=== PATIENT | male | born 1955 | race Caucasian/White ===

== ENCOUNTER 2018-03-01 07:48 | Observation (INO) ==
[2018-03-01 08:18] LABS: Bilirubin,Urine Negative (Negative); Blood,Urine Large (Negative); Clarity,Urine Cloudy (Clear); Color,Urine Red (Yellow); Glucose,Urine (UA) Normal (Normal); Ketones,Urine Trace mg/dL (Negative); Leukocyte Esterase,Urine Moderate (Negative); Nitrite,Urine Positive (Negative); Protein,Urine >=300 mg/dL (Neg-Trace); Specific Gravity,Urine 1.017 (1.010-1.025); Urobilinogen,Urine Normal (Normal)
--- NOTE | 2018-03-01 08:20 | Emergency Department Note ---
Disposition Clinical Impression: Bladder mass, Urinary retention Hematuria Qualifiers: Hematuria type: gross Qualified Code(s): R31.0 - Gross hematuria Disposition: Admitted As Inpatient Condition: Fair Forms: ED Satisfaction Letter General Adult HPI - General Chief complaint: ED Urogenital-Male Stated complaint: unable to void Time Seen by Provider: 03/01/18 07:54 Source: patient Mode of arrival: ambulatory Limitations: no limitations Nursing Notes Reviewed: Yes Vital Signs Reviewed: Yes - History of Present Illness HPI Narrative: 62-year-old male with significant past medical history of hypertension presenting to the emergency department with chief complaint of urinary retention and hematuria. Patient states for 2-3 weeks he has had a dark, orange /red color to his urine. Denies any pain. This morning he woke up and has been unable to urinate. He felt the urge but was unable to pass urine. When patient arrived here he was able to pass urine with large blood clots. Patient states he does not feel he emptied his bladder completely. States some burning with urination. Denies any history of urinary tract infections. Denies any other symptoms at home including fever, shortness breath, chest pain or abdominal pain. Denies nausea or vomiting. Patient does state he is a daily smoker and has smoked for the past 40+ years. Denies any previous kidney stones. Pain Scale: 0 - Related Data Home Medications Medication Instructions Recorded Confirmed Ascorbate Calcium [Vitamin C] 500 mg PO DAILY 10/22/16 10/22/16 Aspirin [Lo-Dose Aspirin EC] 81 mg PO DAILY 10/22/16 10/22/16 Fish Oil/Dha/Epa [Fish Oil 1,200 1,200 mg PO DAILY 10/22/16 10/22/16 mg Fish Oil] Lisinopril [Zestril] 20 mg PO DAILY 10/22/16 10/22/16 amLODIPine [Norvasc] 5 mg PO DAILY 10/22/16 10/22/16 Allergies Allergy/AdvReac Type Severity Reaction Status Date / Time Penicillins Allergy Hives Verified 03/01/18 07:57 All systems ED: reviewed and negative except as stated. Constitutional: Denies: fever, chills, weakness Eyes: Reports: as per HPI ENT ED: Reports: as per HPI Cardiovascular: Denies: chest pain, palpitations, dyspnea on exertion Respiratory: Denies: cough, dyspnea, wheezes Gastrointestinal: Denies: abdominal pain, nausea, vomiting Genitourinary: Reports: hematuria Musculoskeletal: Reports: as per HPI Integumentary: Denies: rash, abrasion Neurological: Denies: weakness, numbness, paresthesias Psychiatric: Reports: as per HPI Endocrine: Reports: as per HPI Hematological/Lymphatic: Reports: as per HPI Allergic/Immunologic: Reports: as per HPI Past Medical History - Past Medical History Attestation: Yes The following information was validated with the patient. Medical history: Reports: hyperlipidemia, hypertension Surgical history: Reports: appendectomy Psychiatric history: Reports: no psych history - Social History Smoking Status: Current every day smoker Smokeless Tobacco Status: Yes Alcohol use: Reports: heavy Drug use: Reports: none Physical Exam - General Limitations: no limitations General appearance: alert, in no apparent distress - Head Head exam: atraumatic, normocephalic, normal inspection - Eye Eye exam: Present: normal appearance. Absent: scleral icterus, conjunctival injection - ENT ENT exam: normal exam, mucous membranes moist - Neck Neck exam: Present: normal inspection, full ROM. Absent: tenderness, meningismus - Chest Chest inspection: Present: normal inspection, symmetric chest wall rise. Absent : tenderness, rash - Respiratory Respiratory exam: Present: normal lung sounds bilaterally. Absent: respiratory distress, wheezes - Cardiovascular Cardiovascular exam: Present: regular rate, normal rhythm, normal heart sounds - Abdominal Exam Abdominal exam: Present: soft, Non-Tender. Absent: distention, guarding, rebound - Extremities Exam Extremities exam: Present: normal inspection, full ROM - Neurological Exam Neurological exam: Present: alert, oriented X3 - Psychiatric Psychiatric exam: Present: normal affect, normal mood - Skin Skin exam: Present: warm, intact Course Course Narrative: 62-year-old male presenting with hematuria and urgency. Patient is alert and oriented 3 in room with stable vital signs. Concern for painless hematuria. We will obtain a urinalysis, CBC, BMP along with a CT of the abdomen and pelvis. Disposition pending results. Patient agrees with this plan. - Reevaluation(s) Reevaluation #1: CT of the abdomen and pelvis shows Irregular somewhat masslike foci of increased attenuation within the urinary bladder posteriorly on both the left and the right, somewhat intimately associated with the urinary bladder wall. Findings are considered to be neoplastic until proven otherwise. Recommend direct visualization and consideration for soft tissue sampling. Concern for malignancy at this time. Otherwise basic laboratory analysis stable. I spoke with the urologist taxonomist Dr. Petersen who agreed to come down and evaluate the patient. He place a catheter and plans to admit the patient to his service for further evaluation and possible tumor resection. Patient remains alert and oriented 3 in the room with stable vital signs. Admission at this time. Patient agrees to this plan. Vital Signs Temperature 97.8 F 03/01/18 07:51 Pulse Rate 93 03/01/18 07:51 Respiratory Rate 16 03/01/18 07:51 Blood Pressure 161/87 03/01/18 07:51 O2 Sat by Pulse Oximetry 95 03/01/18 07:51 Temperature 97.8 F 03/01/18 08:04 Pulse Rate 93 03/01/18 08:04 Respiratory Rate 16 03/01/18 08:04 Blood Pressure 161/87 03/01/18 08:04 O2 Sat by Pulse Oximetry 95 03/01/18 08:04 Oxygen Delivery Oxygen Delivery Room Air Medical Decision Making - Lab Data Result diagrams: 03/01/18 08:14 03/01/18 08:14 Lab Results 03/01/18 03/01/18 03/01/18 Range/Units 08:01 08:14 08:14 WBC 9.1 (4.3-11.1) K/mcL RBC 3.79 L (4.19-5.50) M/mcL Hgb 11.4 L (12.9-16.9) g/dL Hct 35.4 L (37.5-50.1) % MCV 93.4 (83.0-100.0) fL MCH 30.1 (28.0-33.3) pg MCHC 32.2 (31.6-35.5) g/dL RDW 13.8 (11.5-14.5) % Plt Count 295 (140-400) K/mcL MPV 9.2 L (9.4-12.4) fL Immature Gran % 0.3 (0-4) % Seg Neutrophils % 71.4 % Lymphocytes % 20.0 % Monocytes % 8.0 % Eosinophils % 0.0 % Basophils % 0.3 % Neutrophils # 6.5 (1.6-8.9) K/mcL Lymphocytes # 1.8 (0.6-4.6) K/mcL Monocytes # 0.7 (0.0-1.3) K/mcL Eosinophils # 0.0 (0.0-0.6) K/mcL Basophils # 0.0 (0.0-0.2) K/mcL Sodium 135 L (136-145) mEq/L Potassium 4.7 (3.5-5.1) mEq/L Chloride 108 H (98-107) mEq/L Carbon Dioxide 22 L (23-29) mEq/L BUN 26 H (8-23) mg/dL Creatinine 1.16 (0.70-1.30) mg/dL Est GFR ( Amer) > 60 (> 60) Est GFR (Non-Af Amer) > 60 (> 60) BUN/Creatinine Ratio 22 (6-26) Glucose 125 H (70-105) mg/dL Calculated Osmolality 286 (280-300) Calcium 9.3 (8.6-10.3) mg/dL Ur Specimen Adequacy See below A Urine Color Red A (Yellow) Urine Clarity Cloudy A (Clear) Urine pH 6.0 (5.0-8.0) pH Units Ur Specific [place] 1.017 (1.010-1.025) Urine Protein >=300 H (Neg-Trace) mg/dL Urine Glucose (UA) Normal (Normal) mg/dL Urine Ketones Trace H (Negative) mg/dL Urine Blood Large H (Negative) Urine Nitrite Positive A (Negative) Urine Bilirubin Negative (Negative) Urine Urobilinogen Normal (Normal) mg/dL Ur Leukocyte Esterase Moderate H (Negative) Ur Culture Indicated? YES A (NO)
[2018-03-01 08:27] LABS: Basophils % 0.3 %; Hematocrit 35.4 % (37.5-50.1); Hemoglobin 11.4 g/dL (12.9-16.9); Immature Granulocytes % 0.3 % (0-4); Lymphocytes # 1.8 K/mcL (0.6-4.6); Mean Corpuscular HGB Conc 32.2 g/dL (31.6-35.5); Mean Corpuscular Hemoglobin 30.1 pg (28.0-33.3); Mean Corpuscular Volume 93.4 fL (83.0-100.0); Mean Platelet Volume 9.2 fL (9.4-12.4); Monocytes # 0.7 K/mcL (0.0-1.3); Neutrophils # 6.5 K/mcL (1.6-8.9); Platelet Count 295 K/mcL (140-400); Red Blood Count 3.79 M/mcL (4.19-5.50); Red Cell Distribution Width 13.8 % (11.5-14.5); Segmented Neutrophils % 71.4 %
[2018-03-01 08:44] LABS: BUN/Creatinine Ratio 22 (6-26); Blood Urea Nitrogen 26 mg/dL (8-23); Calcium 9.3 mg/dL (8.6-10.3); Carbon Dioxide 22 mEq/L (23-29); Chloride 108 mEq/L (98-107); Glucose 125 mg/dL (70-105); Osmolality,Calculated 286 (280-300); Potassium 4.7 mEq/L (3.5-5.1); Sodium 135 mEq/L (136-145); eGFR For Non-African Americans > 60 (> 60)
--- NOTE | 2018-03-01 08:54 | Emergency Department Note ---
Disposition Clinical Impression: Acute retention of urine, Mass of bladder Disposition: Admitted As Inpatient Condition: Fair Referrals: Saloni Malik MD [Primary Care Provider] - Forms: ED Satisfaction Letter Time of Disposition: 10:01 General Adult HPI - General Chief complaint: ED Urogenital-Male Stated complaint: unable to void Time Seen by Provider: 03/01/18 07:54 Source: patient Mode of arrival: ambulatory Limitations: no limitations - History of Present Illness Pain Scale: 0 - Related Data Home Medications Medication Instructions Recorded Confirmed Ascorbate Calcium [Vitamin C] 500 mg PO DAILY 10/22/16 10/22/16 Aspirin [Lo-Dose Aspirin EC] 81 mg PO DAILY 10/22/16 10/22/16 Fish Oil/Dha/Epa [Fish Oil 1,200 1,200 mg PO DAILY 10/22/16 10/22/16 mg Fish Oil] Lisinopril [Zestril] 20 mg PO DAILY 10/22/16 10/22/16 amLODIPine [Norvasc] 5 mg PO DAILY 10/22/16 10/22/16 Allergies Allergy/AdvReac Type Severity Reaction Status Date / Time Penicillins Allergy Hives Verified 03/01/18 07:57 Constitutional: Denies: fever, chills, weakness Eyes: Reports: as per HPI ENT ED: Reports: as per HPI Cardiovascular: Denies: chest pain, palpitations, dyspnea on exertion Respiratory: Denies: cough, dyspnea, wheezes Gastrointestinal: Denies: abdominal pain, nausea, vomiting Genitourinary: Reports: hematuria Musculoskeletal: Reports: as per HPI Integumentary: Denies: rash, abrasion Neurological: Denies: weakness, numbness, paresthesias Psychiatric: Reports: as per HPI Endocrine: Reports: as per HPI Hematological/Lymphatic: Reports: as per HPI Allergic/Immunologic: Reports: as per HPI Past Medical History - Past Medical History Medical history: Reports: hyperlipidemia, hypertension Surgical history: Reports: appendectomy Psychiatric history: Reports: no psych history - Social History Smoking Status: Current every day smoker Smokeless Tobacco Status: Yes Alcohol use: Reports: heavy Drug use: Reports: none Physical Exam - General Limitations: no limitations General appearance: alert, in no apparent distress Course Vital Signs Temperature 97.8 F 03/01/18 07:51 Pulse Rate 93 03/01/18 07:51 Respiratory Rate 16 03/01/18 07:51 Blood Pressure 161/87 03/01/18 07:51 O2 Sat by Pulse Oximetry 95 03/01/18 07:51 Temperature 97.8 F 03/01/18 08:04 Pulse Rate 93 03/01/18 08:04 Respiratory Rate 16 03/01/18 08:04 Blood Pressure 161/87 03/01/18 08:04 O2 Sat by Pulse Oximetry 95 03/01/18 08:04 Oxygen Delivery Oxygen Delivery Room Air Medical Decision Making - Lab Data Result diagrams: 03/01/18 08:14 03/01/18 08:14 Lab Results 03/01/18 03/01/18 03/01/18 Range/Units 08:01 08:14 08:14 WBC 9.1 (4.3-11.1) K/mcL RBC 3.79 L (4.19-5.50) M/mcL Hgb 11.4 L (12.9-16.9) g/dL Hct 35.4 L (37.5-50.1) % MCV 93.4 (83.0-100.0) fL MCH 30.1 (28.0-33.3) pg MCHC 32.2 (31.6-35.5) g/dL RDW 13.8 (11.5-14.5) % Plt Count 295 (140-400) K/mcL MPV 9.2 L (9.4-12.4) fL Immature Gran % 0.3 (0-4) % Seg Neutrophils % 71.4 % Lymphocytes % 20.0 % Monocytes % 8.0 % Eosinophils % 0.0 % Basophils % 0.3 % Neutrophils # 6.5 (1.6-8.9) K/mcL Lymphocytes # 1.8 (0.6-4.6) K/mcL Monocytes # 0.7 (0.0-1.3) K/mcL Eosinophils # 0.0 (0.0-0.6) K/mcL Basophils # 0.0 (0.0-0.2) K/mcL Sodium 135 L (136-145) mEq/L Potassium 4.7 (3.5-5.1) mEq/L Chloride 108 H (98-107) mEq/L Carbon Dioxide 22 L (23-29) mEq/L BUN 26 H (8-23) mg/dL Creatinine 1.16 (0.70-1.30) mg/dL Est GFR ( Amer) > 60 (> 60) Est GFR (Non-Af Amer) > 60 (> 60) BUN/Creatinine Ratio 22 (6-26) Glucose 125 H (70-105) mg/dL Calculated Osmolality 286 (280-300) Calcium 9.3 (8.6-10.3) mg/dL Ur Specimen Adequacy See below A Urine Color Red A (Yellow) Urine Clarity Cloudy A (Clear) Urine pH 6.0 (5.0-8.0) pH Units Ur Specific [place] 1.017 (1.010-1.025) Urine Protein >=300 H (Neg-Trace) mg/dL Urine Glucose (UA) Normal (Normal) mg/dL Urine Ketones Trace H (Negative) mg/dL Urine Blood Large H (Negative) Urine Nitrite Positive A (Negative) Urine Bilirubin Negative (Negative) Urine Urobilinogen Normal (Normal) mg/dL Ur Leukocyte Esterase Moderate H (Negative) Ur Culture Indicated? YES A (NO) Attestation Statement - Attestation Attestation: I examined this patient and my medical decision-making was reviewed with the Resident Physician. I agree with the documented findings, disposition and treatment plan as described except to the extent set forth below. Patient to the ED with urinary retention and hematuria. Onset a couple of days ago. Patient has had dark urine for a few weeks. He is now passing clots and unable to void. No history of similar. He is a smoker. Retired from [employer]. He is in no distress on examination with a soft, nontender abdomen. Plan. Basic labs, UA, CT abdomen pelvis. CT shows tumor. Labs stable. He does have a UTI. He has been evaluated by Dr. Petersen in the emergency Department and will admit to his service. Abdomen/Pelvis CT 03/01/18 08:09 IMPRESSION: Irregular somewhat masslike foci of increased attenuation within the urinary bladder posteriorly on both the left and the right, somewhat intimately associated with the urinary bladder wall. Findings are considered to be neoplastic until proven otherwise. Recommend direct visualization and consideration for soft tissue sampling. No evidence for urinary tract stone or urinary tract obstruction on either side. No acute abnormalities are seen to the abdomen or pelvis. No evidence for metastatic disease is seen to the abdomen or pelvis on this noncontrast study. Mildly enlarged prostate. D/ / 03/01/2018 08:48:20 Tam Syed MD / snow Interpreting Provider: Tam Syed MD
[2018-03-01] MEDS ORDERED: Lidocaine Jelly 11 ml Syringe TP STA (09:20)
[2018-03-01] MEDS ORDERED: *HR* HYDROcodone/Acet 5/325 mg TABLET PO PRN (10:43)
[2018-03-01] MEDS ORDERED: Isovue-370 500 ML INFUS..BTL IV ONE ×2 (10:43→11:28)
[2018-03-01] MEDS ORDERED: OXYCODONE Oral CONC 10 MG/0.5 ML ORAL.SYG SL PRN (10:43)
[2018-03-01] MEDS ORDERED: Naloxone 0.4 MG/ML INJ IVP PRN (10:43)
[2018-03-01] MEDS ORDERED: *HR* Belladonna Alkaloids/Opium 30 MG RECTAL SUPPOSITORY RC PRN (10:43)
[2018-03-01] MEDS ORDERED: Levofloxacin 500 MG/100 ML 500 MG/100 ML BAG IVPB SCH (11:00)
[2018-03-01] MEDS: 0.9 % Sodium Chloride 1,000 ML IVC SCH (13:25)
--- NOTE | 2018-03-01 16:31 | Urology History & Physical ---
Date of Encounter: 03/01/18 Time of Encounter: 16:29 Assessment and Plan (1) Acute retention of urine Current Visit: Yes Status: Acute pt has clot retention. I suspect one of the "tumors" mentioned on the CT scan is actually a clot. placed a hematuria cath but unable to irrigate the clot out. will admit and plan to go to OR tomorrow for TURBT and clot evacuation. I feel pt is too high of risk for discharge bc of recurrent clot retention. (2) Mass of bladder Current Visit: Yes Status: Acute I strongly suspect at least one tumor which is likely bladder cancer. will proceed with TURBT at time of clot evacuation. pt understands risk for perforation, stricture, injury to the urinary tract, bleeding, infection, need for further surgery. History of Present Illness Chief complaint: GH HPI: Mr. Ramos is a 62 year old male 40 year hx smoking. recent GH. GH with clots and difficulty urinating today. cut some firewood yesterday and heamturia worsened. no hx of similar. ct scan with likely bladder tumor. no CP or SOB. no weight loss. Past Med Surg Social Fam HX - Past Medical History Medical history: hyperlipidemia, hypertension Psychiatric history: no psych history - Past Surgical History Surgical History: appendectomy - Social History Smoking Status: Current every day smoker Smokeless Tobacco Status: Yes Alcohol use: heavy Drug use: none - Family History Mother Age at : 93 Cause of : dementia Medications and Allergies Ascorbate Calcium [Vitamin C] 500 mg PO DAILY 10/22/16 [History] Aspirin [Lo-Dose Aspirin EC] 81 mg PO DAILY 10/22/16 [History] Fish Oil/Dha/Epa [Fish Oil 1,200 mg Fish Oil] 1,200 mg PO DAILY 10/22/16 [ History] Lisinopril [Zestril] 20 mg PO DAILY 10/22/16 [History] amLODIPine [Norvasc] 5 mg PO DAILY 10/22/16 [History] 3 Allergy/AdvReac Type Severity Reaction Status Date / Time Penicillins Allergy Hives Verified 03/01/18 07:57 Review of Systems - Constitutional no chills, no fatigue - EENT Nose, mouth and throat: no dizziness - Cardiovascular no chest pain - Respiratory no cough - Gastrointestinal no abdominal pain, no nausea, no vomiting - Genitourinary difficulty urinating, hematuria, no flank pain - Musculoskeletal no back pain - Integumentary no erythema - Neurological no confusion - Psychiatric no anxiety - Hematologic/Lymphatic no easy bleeding - Allergic/Immunologic no throat swelling Exam Initial Vital Signs Temp Pulse Resp BP Pulse Ox 97.8 F 93 16 161/87 95 03/01/18 07:51 03/01/18 07:51 03/01/18 07:51 03/01/18 07:51 03/01/18 07:51 - General physical appearance Present: well developed, no distress - Eyes Present: PERRL - ENT Present: normal nares - Neck Present: no masses - Respiratory Present: normal respiratory effort - Cardiovascular Cardiovascular exam IM: RRR - Abdomen Abdomen: Present: soft, suprapubic tenderness - Genitourinary normal penis with no external lesions - Integumentary Present: no rash - Neurologic Present: normal coordination. Absent: disoriented, confused - Additional Findings voided urine dark maroon. Urology Results - Labs 03/01/18 08:14 03/01/18 08:14 Abnormal lab results RBC 3.79 M/mcL (4.19-5.50) L 03/01/18 08:14 Hgb 11.4 g/dL (12.9-16.9) L 03/01/18 08:14 Hct 35.4 % (37.5-50.1) L 03/01/18 08:14 MPV 9.2 fL (9.4-12.4) L 03/01/18 08:14 Sodium 135 mEq/L (136-145) L 03/01/18 08:14 Chloride 108 mEq/L (98-107) H 03/01/18 08:14 Carbon Dioxide 22 mEq/L (23-29) L 03/01/18 08:14 BUN 26 mg/dL (8-23) H 03/01/18 08:14 Glucose 125 mg/dL (70-105) H 03/01/18 08:14 Ur Specimen Adequacy See below A 03/01/18 08:01 Urine Color Red (Yellow) A 03/01/18 08:01 Urine Clarity Cloudy (Clear) A 03/01/18 08:01 Urine Protein >=300 mg/dL (Neg-Trace) H 03/01/18 08:01 Urine Ketones Trace mg/dL (Negative) H 03/01/18 08:01 Urine Blood Large (Negative) H 03/01/18 08:01 Urine Nitrite Positive (Negative) A 03/01/18 08:01 Ur Leukocyte Esterase Moderate (Negative) H 03/01/18 08:01 Ur Culture Indicated? YES (NO) A 03/01/18 08:01 All other labs normal.
[2018-03-02] MEDS: 0.9 % Sodium Chloride 1,000 ML IVC SCH (06:37)
--- NOTE | 2018-03-02 07:24 | Anesthesia Evaluation PreOp ---
Date of Encounter: 03/02/18 Time of Encounter: 08:30 - Past History Planned Operation: TURP with clot evacuation Cardiac History: HTN, Hyperlipidemia Pulmonary History: Smoker [employer] History: Denies Any Significant HX Other Medical History: Denies Any Significant HX Anesthesia History: No Prior Anesthetic Complications, Past Anesthesia Alcohol Use: heavy Drug use: none Medications and Allergies Ascorbate Calcium [Vitamin C] 500 mg PO DAILY 10/22/16 [History] Aspirin [Lo-Dose Aspirin EC] 81 mg PO DAILY 10/22/16 [History] Fish Oil/Dha/Epa [Fish Oil 1,200 mg Fish Oil] 1,200 mg PO DAILY 10/22/16 [ History] Lisinopril [Zestril] 20 mg PO DAILY 10/22/16 [History] amLODIPine [Norvasc] 5 mg PO DAILY 10/22/16 [History] 3 Allergy/AdvReac Type Severity Reaction Status Date / Time Penicillins Allergy Hives Verified 03/01/18 07:57 - Meds/Allergy Pre-op Review Medications Reviewed: Yes Allergies Reviewed: Yes Beta Blockers on Current Med List: No Anesthesia Results - Labs 03/01/18 08:14 03/01/18 08:14 Anesthesia Exam Selected Entries 03/02/18 07:08 Temperature 98.0 F Pulse Rate 55 Respiratory Rate 16 Blood Pressure 152/70 O2 Sat by Pulse Oximetry 98 Weight: 63 kg NPO (# of Hours): over 8 hours - HEENT Pupil (Motor): Pupils equal Mallampati: III Oral Opening: Greater than 3 - Cardiac Rhythm: Regular Murmur: None - Pulmonary Breath Sounds: bilateral Clear Respiratory Effort: Symmetrical Anesthesia Assess/Plan ASA Score: 2 Modified Amo Scale for Level of Consciousness: Cooperative, oriented, and tranquil Anesthetic Plan: General Monitoring Plan: Standard Monitors Recovery Plan: Other
[2018-03-02] MEDS ORDERED: Lidocaine -MPF 2% 2 ML VIAL ONE (08:32)
[2018-03-02] MEDS ORDERED: *HR* Propofol 200 MG/20 ML VIAL IVP ONE (08:32)
[2018-03-02] MEDS ORDERED: Ondansetron 4 MG/2 ML VIAL ONE (08:32)
[2018-03-02] MEDS ORDERED: Lidocaine -MPF 4% 5 ML AMPUL ONE (08:32)
[2018-03-02] MEDS ORDERED: *HR* FentaNYL (PF) 100 MCG/2 ML VIAL ONE ×2 (08:32→08:51)
[2018-03-02] MEDS ORDERED: Dexamethasone 4 MG/ML VIAL ONE (08:32)
[2018-03-02] MEDS ORDERED: *HR* Rocuronium Bromide 50 MG/5 ML VIAL ONE (08:32)
[2018-03-02] MEDS ORDERED: *HR* Midazolam HCl 2 MG/2 ML VIAL ONE (08:32)
[2018-03-02] MEDS ORDERED: EPHEDrine 50 MG/ML VIAL ONE (08:32)
[2018-03-02] MEDS ORDERED: *HR* PHENYLEPHRINE 1,000 MCG/10 ML SYRINGE IVP ONE (08:32)
[2018-03-02] MEDS ORDERED: MORPHINE SUL Oral CONC 10 MG/0.5 ML ORAL.SYG SL PRN (08:40)
[2018-03-02] MEDS ORDERED: *HR* OxyCODONE Immed Rel 5 MG TABLET PO PRN (08:40)
[2018-03-02] MEDS ORDERED: *HR* Promethazine 25 MG/ML VIAL IVP PRN (08:40)
[2018-03-02] MEDS ORDERED: Albuterol 2.5 MG/3 ML NEBULIZER IH ONE (08:40)
[2018-03-02] MEDS ORDERED: Dexamethasone 4 MG/ML VIAL IVP ONE (08:40)
[2018-03-02] MEDS ORDERED: Acetaminophen IV 1,000 MG/100 ML INFUS..BTL ONE (08:54)
[2018-03-02] MEDS ORDERED: Neostigmine Methylsulfate 3 MG/3 ML SYRINGE ONE (09:00)
--- NOTE | 2018-03-02 09:46 | Operative Note ---
Date of procedure: 03/02/18 Pre-op diagnosis: bladder tumor and clot retention Post-op diagnosis: same Procedure: medium TURBT. tumor size 3-4 cm clot evacuation Anesthesia: GETA Surgeon: Sascha Petersen Was there an workforce development assistant present: No Estimated blood loss (cc): 50 Specimen: bladder tumor Condition: stable Disposition: PACU Procedure in Detail: PROCEDURE IN DETAIL: Patient was taken back to the operating room, positioned supine on the operating table. Anesthesia was applied without complication. They were moved into dorsal lithotomy. Careful attention was maintained to cushion pressure points for patient's safety. The patient was prepped and draped in sterile fashion. Time-out was performed to confirm the proper patient and procedure. I dilated the meatus to a 24-Occitan size with a Pili dilator. I placed the resectoscope with visual obturator. 22-Occitan bipolar resection loop was obtained and assembled. The tumor was located on the left lateral wall just lateral to the ureteral orifice. The ureteral orifice was approximately 1 cm away from the tumor however there was significant parasitic vessels in this area. There was a large blood clot within the dependent portion of the bladder that was irrigated using the [place] syringe. I then was able to resect the tumor in its entirety. There was no obturator reflex during the procedure as the patient was paralyzed. Muscle appeared to be visualized in the resection site and there was no evidence of perforation. Hemostasis was controlled with the loop and minimal bleeding was observed after the procedure. I did cauterize around the ureteral orifice but it was clearly visible after the resection and fulguration. The remainder of the bladder appeared free from tumor. There was some irritation to the bladder wall and moderate trabeculations. All tumor chips were removed from the bladder through the resectoscope and sent for permanent specimen. I emptied and filled the bladder a few times to confirm hemostasis. A three-way 22-[place]itan catheter was placed with return of clear urine at the end of the procedure. They were brought out of anesthesia in stable condition.
--- NOTE | 2018-03-02 09:49 | Discharge Summary ---
Orders not resulted at time of discharge: Pending orders 03/01/18 10:43 ECG 12 lead ECG [ECG] Routine 03/02/18 09:13 Surgical Pathology [PTH] Routine Date of Encounter: 03/02/18 Time of Encounter: 09:49 - Discharge Diagnosis (1) Acute retention of urine Priority: Secondary Status: Resolved (2) Mass of bladder Priority: Primary Status: Resolved - Hospital Course Hospital course: Mr. 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 Status post TURBT and clot evacuation. Urine clear. Plan to discharge today with catheter in place. Time spent discussing smoking cessation with patient: 3 to 10 minutes - Time Spent with Patient Total time spent providing and/or coordinating discharge services: Less than 30 minutes Labs on day of discharge: Labs from last 24 hours 03/02/18 06:01 POC Glucose 114 H - Impressions ITS Impressions Abdomen/Pelvis CT 03/01/18 10:43 IMPRESSION: Redemonstration of irregular masslike focus within the urinary bladder on the left intimately associated with the left bladder wall. Masslike focus noted to the urinary bladder on the right now has a somewhat more curvilinear appearance currently. 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 Direct visualization and consideration for soft tissue sampling again recommended. There are some small low-attenuation foci identified to the liver measuring maximally 5 mm felt more likely to reflect some liver cysts or hemangiomata, but with the findings to the urinary bladder metastatic disease cannot entirely be excluded. MRI of the liver can be considered for further evaluation. No additional evidence for metastatic disease to the abdomen or pelvis. No acute findings are seen to the abdomen or pelvis. Mildly enlarged prostate. D/ / 03/01/2018 11:49:20 Tam Syed MD / leslie Interpreting Provider: Tam Syed MD - Discharge Medications Prescriptions: HYDROcodone/Acet 5/325 mg [Chemult 5-325 mg] 1 tab PO Q6HR PRN 5 Days #15 tablet PRN Reason: Moderate Pain Levofloxacin [Levaquin] 500 mg PO DAILY #3 tablet Home Medications: Lisinopril [Zestril] 20 mg PO DAILY 10/22/16 [History] amLODIPine [Norvasc] 5 mg PO DAILY 10/22/16 [History] HYDROcodone/Acet 5/325 mg [Chemult 5-325 mg] 1 tab PO Q6HR PRN 5 Days #15 tablet 03/02/18 [Rx] Levofloxacin [Levaquin] 500 mg PO DAILY #3 tablet 03/02/18 [Rx] Allergies/Adverse Reactions: 3 Allergy/AdvReac Type Severity Reaction Status Date / Time Penicillins Allergy Hives Verified 03/01/18 07:57 Date of admission: 03/01/18 10:01 Primary care physician: Saloni Malik MD Discharging clinician: Sascha Petersen Anticipated date of discharge: 03/02/18 Exam Initial Vital Signs Temp Pulse Resp BP Pulse Ox 97.8 F 93 16 161/87 95 03/01/18 07:51 03/01/18 07:51 03/01/18 07:51 03/01/18 07:51 03/01/18 07:51 - General physical appearance Present: no distress - Patient Status Disposition: Home, Self-Care Condition: Good Functional capacity at discharge: independent ambulation Overall status at discharge: patient is progressing back to baseline - Discharge Instructions Follow Up With: Saloni Malik MD [Primary Care Provider] - Sascha Petersen MD [Partnered Physician] - (Saturday) Additional Instructions: Discharge with Phelps catheter in place. Please do not remove Phelps catheter for any reason until instructed Light blood in the urine is normal. Okay to use [id number] AZO for catheter discomfort. Strictly avoid any heavy lifting, heavy activity and straining until cleared by physician Avoid any aspirin or NSAIDs Use stool softeners if prone to constipation. Okay to shower. No baths or swimming Please provide patient a leg bag. Okay to use leg bag during the day. Bedside bag is preferred at night to prevent overfill. Follow-up will be on Saturday for catheter removal. - Diet and Activity Activity: other Diet: advance to your usual diet
[2018-03-02] MEDS ORDERED: *HR* HYDROcodone/Acet 5/325 mg TABLET PO PRN (10:24)
[2018-03-02] MEDS ORDERED: OXYCODONE Oral CONC 10 MG/0.5 ML ORAL.SYG SL PRN (10:24)
[2018-03-02] MEDS ORDERED: *HR* Belladonna Alkaloids/Opium 30 MG RECTAL SUPPOSITORY RC PRN (10:24)
[2018-03-02] MEDS ORDERED: Naloxone 0.4 MG/ML INJ IVP PRN (10:24)
--- NOTE | 2018-03-02 10:27 | Anesthesia Evaluation Post Op ---
Date of Encounter: 03/02/18 Time of Encounter: 09:30 - Vital Signs Vital Signs: Selected Entries 03/02/18 09:21 Temperature 98.1 F Pulse Rate 74 Respiratory Rate 16 Blood Pressure 130/78 O2 Sat by Pulse Oximetry 100 - Lungs Lungs: Clear Ascult./Percussion - Airway Airway: Non-obstructed - Cardiovascular Regular Rate - Mental Status Mental Status: Alert & Oriented, Answers Appropriately - Nausea Vomiting Nausea Vomiting: Not Present - Hydration Hydration: Ice chips - Discharge PostOp Status: Transfer Patient to floor
[2018-03-02] MEDS ORDERED: Levofloxacin 500 MG/100 ML 500 MG/100 ML BAG IVPB SCH (11:00)
[2018-03-02 11:18] VITALS: BP 122/65
[2018-03-03] MEDS ORDERED: Lisinopril 20 MG TABLET PO SCH (09:00)
[2018-03-03] MEDS ORDERED: amLODIPine 5 MG TABLET PO SCH (09:00)
== END 2018-03-02 12:10 | disposition home or self-care (01) ==
LOC: 3ANU 07:48 → EMEROOARM 07:48 → 3ANU 11:10
PROVIDERS: ADMIT Urology; ATTEND Urology